=== PATIENT | female | born 2000 | race African-American/Black ===

== ENCOUNTER 2024-02-18 11:51 | Emergency (ER) | payer OTHER, SELFPAY ==
--- NOTE | 2024-02-18 14:21 | RAD REPORT ---
EXAMINATION: ONE VIEW CHEST XR CLINICAL INDICATION: CHEST PAIN TECHNIQUE: Frontal chest projection is submitted. Examination is limited by patient positioning and t echnique. COMPARISON: 12/19/2022 FINDINGS: The lungs are well inflated and clear. The heart is normal in size. No displaced fractures identified . IMPRESSION: No acute intrathoracic abnormalities.
[2024-02-18 16:44] LABS: Absolute Eosinophils 0.1 K/uL (0-0.5); Absolute Lymphocytes (CBC) 1.6 K/uL (0.7-4.9); Absolute Monocytes 0.4 K/uL (0.1-1.3); Absolute Neutrophil 3.1 K/uL (1.8-8.0); Basophils % 0.7 % (0-1.3); Eosinophils % 1.9 % (0-4.4); Hematocrit 34.5 % (36.0-45.0); Hemoglobin 11.6 g/dL (12.0-15.0); Lymphocytes % 30.8 % (15.3-44.8); MCHC 33.6 g/dL (32.0-36.0); MCV 83.6 fL (80-100); MPV 7.3 fL (7.6-11.3); Monocytes % 6.9 % (3.3-12.3); Neutrophils % 59.7 % (41.7-73.7); Nucleated Red Blood Cells % 0.1 % (0-0); Platelets 325 thou/uL (152-406); RBC Red Blood Cell Count 4.12 M/uL (3.86-4.86); Red Cell Distribution Width 14.9 % (12.1-15.2)
[2024-02-18 17:04] LABS: ALT/SGPT 24 U/L (13-56); AST/SGOT 13 U/L (15-37); Albumin 3.6 g/dL (3.4-5.0); Albumin/Globulin Ratio 0.9 (1.1-1.8); Alkaline Phosphatase 74 U/L (45-117); Anion Gap 6.5 mEq/L (5.0-15.0); BUN Blood Urea Nitrogen 6 mg/dL (7-18); Bicarbonate 28 mEq/L (21-32); Bilirubin Direct < 0.2 mg/dL (0-0.2); Bilirubin Indirect, Calculated 0.3 mg/dL (0.2-0.8); Bilirubin Total 0.5 mg/dL (0.2-1.0); Glomerular Filtration Rate 99 ml/min (=/>90); Glucose Level 105 mg/dL (74-106); Potassium 3.5 mEq/L (3.5-5.1); Protein, Total 7.6 g/dL (6.4-8.2); Sodium Level 139 mEq/L (136-145); Troponin High Sensitivity 3.6 pg/mL (<58.9)
--- NOTE | 2024-02-18 17:12 | ER ---
Nurse's Notes [facility] Name: Cori Sheehan Age: 23 yrs Sex: Female : 2000 Arrival Date: 02/18/2024 Time: 11:51 Bed 26 Private MD: Diagnosis: Chest pain, unspecified Presentation: 02/17 12:53 Chief complaint: Patient states: Chest pressure that started yesterday, seen at urgent care today,had EKG that was abnormal, sent to ED for further evaluation. Coronavirus screen: Vaccine status: Patient reports being unvaccinated. Ebola Screen: No symptoms or risks identified at this time. Initial Sepsis Screen: Does the patient meet any 2 criteria? No. Patient's initial sepsis screen is negative. Does the patient have a suspected source of infection? No. Patient's initial sepsis screen is negative. Risk Assessment: Do you want to hurt yourself or someone else? Patient reports no desire to harm self or others. Onset of symptoms was February 18, 2024. 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 - Infectious Disease History:: Denies. - Social history:: Smoking status: Patient denies any tobacco usage or history of. - Family history:: not pertinent. Screenin:40 [facility] ED Fall Risk Assessment (Adult) History of falling in the last 3 months, me1 including since admission No falls in past 3 months (0 pts) Confusion or Disorientation No (0 pts) Intoxicated or Sedated No (0 pts) Impaired Gait No (0 pts) Mobility Assist Device Used No (0 pt) Altered Elimination No (0 pt) Score/Fall Risk Level 0 - 2 = Low Risk Maintained a safe environment, Provided non-skid footwear, Hourly rounding (assess needs \T\ fall precautionary measures) done. Abuse screen: Denies threats or abuse. Nutritional screening: No deficits noted. Tuberculosis screening: No symptoms or risk factors identified. Assessment: 14:40 General: Appears comfortable, well groomed, well developed, well nourished, Behavior is me1 calm, cooperative, appropriate for age, Reports Chest pressure that started yesterday, seen at urgent care today,had EKG that was abnormal, sent to ED for further evaluation. Pain: Complains of pain in chest Pain does not radiate. Pain currently is 3 out of 10 on a pain scale. Quality of pain is described as pressure, Pain began 1 day ago. Is continuous. Neuro: Level of Consciousness is awake, alert, obeys commands, Oriented to person, place, time, situation, Appropriate for age. Cardiovascular: Patient's skin is warm and dry. Cardiovascular: Reports chest pain, shortness of breath. Respiratory: Airway is patent Respiratory effort is even, unlabored, Respiratory pattern is regular, symmetrical. GI: No signs and/or symptoms were reported involving the gastrointestinal system. : No signs and/or symptoms were reported regarding the genitourinary system. EENT: No signs and/or symptoms were reported regarding the EENT system. Derm: Skin is intact, is healthy with good turgor, Skin is pink, warm \T\ dry. Musculoskeletal: No signs and/or symptoms reported regarding the musculoskeletal system. Vital Signs: 12:53 BP 130 / 74; Pulse 65; Resp 18; Temp 97.5; Pulse Ox 100% on R/A; Weight 149.69 kg; ph Height 5 ft. 10 in. ; 15:00 BP 110 / 82; Pulse 76; Resp 19; Pulse Ox 100% ; me1 16:00 BP 113 / 81; Pulse 71; Resp 12; Pulse Ox 96% ; me1 17:00 BP 121 / 95; Pulse 68; Resp 16; Temp 98.4; Pulse Ox 100% ; me1 12:53 Body Mass Index 47.35 (149.69 kg, 177.8 cm) ph ED Course: 11:58 Patient arrived in ED. mg5 12:00 Gerard Topete MD is Attending Physician. rt 12:58 Triage completed. ph 14:16 XRAY Chest (1 view) In Process Unspecified. EDMS 14:39 Sweta Cano, ADEBAYO is Primary Nurse. me1 14:39 EKG done, by ED staff, reviewed by Gerard Topete MD. me1 14:40 No provider procedures requiring assistance completed. Missed attempt(s): 22 gauge in me1 right antecubital area. 14:40 Missed attempt(s): 22 gauge in left antecubital area. me1 14:40 Patient has correct armband on for positive identification. Bed in low position. Call me1 light in reach. Side rails up X2. Provided Education on: POC. Verbalized understanding. . Client placed on continuous cardiac and pulse oximetry monitoring. NIBP monitoring applied. flatwork tier on. Pulse ox on. NIBP on. Warm blanket given. 14:40 Arm band placed on Patient placed in an exam room. me1 16:40 Accessed peripheral vein via ultrasound, utilizing dynamic ultrasound technique using ss 20G Nexia IV catheter ,sterile technique, per hospital protocol. Clean \T\ dry. Dressing intact. Good blood return. Flushes easily. 16:42 Basic Metabolic Panel Sent. ss 16:42 CBC with Diff Sent. 16:42 LFT's Sent. 16:42 Troponin HS Sent. ss 17:11 Garrett Gaines MD is Referral Physician. rt 17:22 IV discontinued, intact, bleeding controlled, No redness/swelling at site. Pressure me1 dressing applied. Administered Medications: No medications were administered Medication: 14:40 VIS not applicable for this client. me1 Outcome: 17:11 Discharge ordered by MD. rt 17:22 Discharged to home ambulatory, with family, me1 17:22 Condition: stable 17:22 Discharge instructions given to patient, family, Instructed on discharge instructions, follow up and referral plans. Demonstrated understanding of instructions, follow-up care, 17:22 Patient left the ED. me1 Signatures: Dispatcher [employer] EDTN Kamilla Gruber RN RN Flavia Palomo RN RN Gerard Topete MD MD rt Sweta Cano RN RN [facility] Janice Braden mg5 Corrections: (The following items were deleted from the chart) 16:23 12:53 Chief complaint: Patient states: Chest pressure that started yesterday, seen at [facility] urgent care today,had EKG that was abnormal, sent to ED for further evaluation. ph
--- NOTE | 2024-02-18 17:12 | EDPHYS ---
Physician Documentation [facility] Name: Cori Sheehan Age: 23 yrs Sex: Female : 2000 Arrival Date: 02/18/2024 Time: 11:51 Bed 26 Private MD: ED Physician Gerard Topete HPI: 02/17 17:20 This 23 yrs old Black Female presents to ER via Ambulatory with complaints of Abnormal rt Lab Results - EKG. 17:22 Patient presents to the ED with chest pain starting yesterday. Describes as a pressure. rt Denies difficulty breathing, other acute complaints. Patient states that she went to an urgent care today, sent to the ED because she had an abnormal EKG. Denies other acute complaints, symptoms are moderate in severity, no other aggravating or alleviating factors.. 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 - Infectious Disease History:: Denies. - Social history:: Smoking status: Patient denies any tobacco usage or history of. - Family history:: not pertinent. ROS: 17:22 Constitutional: Negative for fever, chills, and weight loss, Respiratory: Negative for rt shortness of breath, cough, wheezing, and pleuritic chest pain, Abdomen/GI: Negative for abdominal pain, nausea, vomiting, diarrhea, and constipation, MS/Extremity: Negative for injury and deformity, Skin: Negative for injury, rash, and discoloration, 17:22 Cardiovascular: Positive for chest pain, Negative for edema, Exam: 17:22 Constitutional: This is a well developed, well nourished patient who is awake, alert, rt and in no acute distress. Head/Face: Normocephalic, atraumatic. Chest/axilla: Normal chest wall appearance and motion. Nontender with no deformity. No lesions are appreciated. Cardiovascular: Regular rate and rhythm with a normal S1 and S2. No gallops, murmurs, or rubs. Normal PMI, no JVD. No pulse deficits. Respiratory: Lungs have equal breath sounds bilaterally, clear to auscultation and percussion. No rales, rhonchi or wheezes noted. No increased work of breathing, no retractions or nasal flaring. Abdomen/GI: Soft, non-tender, with normal bowel sounds. No distension or tympany. No guarding or rebound. No evidence of tenderness throughout. Skin: Warm, dry with normal turgor. Normal color with no rashes, no lesions, and no evidence of cellulitis. MS/ Extremity: Pulses equal, no cyanosis. Neurovascular intact. Full, normal range of motion. Neuro: Awake and alert, GCS 15, oriented to person, place, time, and situation. Cranial nerves II-XII grossly intact. Motor strength 5/5 in all extremities. Sensory grossly intact. Cerebellar exam normal. Normal gait. 17:22 ECG was reviewed by the Attending Physician. Vital Signs: 12:53 BP 130 / 74; Pulse 65; Resp 18; Temp 97.5; Pulse Ox 100% on R/A; Weight 149.69 kg; ph Height 5 ft. 10 in. ; 15:00 BP 110 / 82; Pulse 76; Resp 19; Pulse Ox 100% ; me1 16:00 BP 113 / 81; Pulse 71; Resp 12; Pulse Ox 96% ; me1 17:00 BP 121 / 95; Pulse 68; Resp 16; Temp 98.4; Pulse Ox 100% ; me1 12:53 Body Mass Index 47.35 (149.69 kg, 177.8 cm) ph MDM: 14:38 Medical Screening Exam initiated rt 17:22 Differential Diagnosis Nonspecific chest pain, ACS, pneumonia. Data reviewed: vital rt signs, nurses notes, lab test result(s), EKG, radiologic studies. I considered the following discharge prescriptions or medication management in the emergency department. Independent interpretation of the following test(s) in the Emergency Department X-Ray: My interpretation is No consolidation seen on my interpretation of x-ray images. Test considered but Not performed: CT: Low suspicion for PE, PE RC negative, does not require pulmonary angiogram to rule out PE. Scoring Tools HEART Score: History: Slightly Suspicious (0) ECG: Non specific repolarization disturbance/ LBTB/ PM (1) Age: < or = 45 years (0) Risk Factors: No Risk factors known (0) Troponin: > 1 and < 3 x Normal limit (1) Total Score = 2. Counseling: I had a detailed discussion with the patient and/or guardian regarding the historical points, exam findings, and any diagnostic results supporting the discharge/admit diagnosis, lab results, radiology results, the need for outpatient follow up, to return to the emergency department if symptoms worsen or persist or if there are any questions or concerns that arise at home. 02/17 13:15 Order name: Basic Metabolic Panel; Complete Time: 17:08 rt 02/17 13:15 Order name: CBC with Diff; Complete Time: 17:01 rt 02/17 13:15 Order name: LFT's; Complete Time: 17:08 rt 02/17 13:15 Order name: Troponin HS; Complete Time: 17:08 rt 02/17 13:15 Order name: XRAY Chest (1 view); Complete Time: 14:28 rt 02/17 13:15 Order name: EKG; Complete Time: 13:16 rt 02/17 13:15 Order name: Cardiac monitoring; Complete Time: 15:17 rt 02/17 13:15 Order name: EKG - Nurse/Tech; Complete Time: 14:39 rt 02/17 13:15 Order name: IV Saline Lock; Complete Time: 16:42 rt 02/17 13:15 Order name: Labs collected and sent; Complete Time: 16:42 rt 02/17 13:15 Order name: O2 Per Protocol; Complete Time: 15:17 rt 02/17 13:15 Order name: O2 Sat Monitoring; Complete Time: 15:17 rt EC:22 Rate is 75 beats/min. Rhythm is regular, Normal Sinus Rhythm with No ectopy. QRS Carter rt is Normal. VA interval is normal. QRS interval is normal. QT interval is normal. No Q waves. T waves are Inverted in lead III. No ST changes noted. Administered Medications: No medications were administered Disposition Summary: 02/18/24 17:11 Discharge Ordered Notes: Location: Home rt Problem: new rt Symptoms: have improved rt Condition: Stable rt Diagnosis - Chest pain, unspecified rt Followup: rt - With: Garrett Gaines MD - When: 2 - 3 days - Reason: Discharge Instructions: - Discharge Summary Sheet rt - Nonspecific Chest Pain, Adult rt Forms: - Medication Reconciliation Form rt - Antibiotic Education rt - Prescription Opioid Use rt - Patient Portal Instructions rt - Leadership Thank You Letter rt Signatures: Dispatcher [employer] Flavia Dye RN RN [place], Gerard, MD MD rt
[2024-02-18 18:19] VITALS: BP 121/95; TEMP 98.4; O2SAT 100
== END 2024-02-18 17:22 | disposition home or self-care (01) ==
LOC: ER 11:51
DX: R07.9 Chest pain, unspecified (principal)
CPT/HCPCS: 36415; 71045; 80048; 80076; 84484; 85025; 93005; 99285

== ENCOUNTER 2024-09-03 21:52 | Emergency (ER) | payer OTHER, SELFPAY ==
[2024-09-03] MEDS ORDERED: NA CHLORIDE 0.9% 1,000 ML ONE (23:10)
[2024-09-03] MEDS ORDERED: ONDANSETRON 4 MG/2 ML VIAL ONE (23:10)
[2024-09-04 00:19] LABS: Monoscreen NEG (NEG)
[2024-09-04 00:21] LABS: Eosinophils % 0.9 % (0-4.4); Hematocrit 34.6 % (36.0-45.0); Hemoglobin 11.6 g/dL (12.0-15.0); MCH 27.6 pg (27.0-35.0); MCHC 33.6 g/dL (32.0-36.0); MCV 82.2 fL (80-100); MPV 8.5 fL (7.6-11.3); Monocytes % 5.8 % (3.3-12.3); Neutrophils % 54.6 % (41.7-73.7); Platelets 304 thou/uL (152-406); RBC Red Blood Cell Count 4.21 M/uL (3.86-4.86); Red Cell Distribution Width 15.3 % (12.1-15.2)
[2024-09-04 00:22] LABS: Absolute Eosinophils 0.1 K/uL (0-0.5); Absolute Lymphocytes (CBC) 2.2 K/uL (0.7-4.9); Absolute Monocytes 0.3 K/uL (0.1-1.3); Absolute Neutrophil 3.1 K/uL (1.8-8.0); Basophils % 0.7 % (0-1.3)
[2024-09-04] MEDS ORDERED: NA CHLORIDE 0.9% 1,000 ML ONE (00:55)
[2024-09-04 00:56] LABS: Glomerular Filtration Rate 88 ml/min (=/>90)
[2024-09-04 00:57] LABS: Albumin/Globulin Ratio 0.9 (1.1-1.8); Globulin 4.2 g/dL (2.3-3.5)
--- NOTE | 2024-09-04 03:12 | RAD REPORT ---
EXAM: US Abdomen Limited, Gallbladder CLINICAL HISTORY: The patient is 24 years old and is Female; ABD PAIN TECHNIQUE: Real-time ultrasound of the right upper quadrant with image documentation. COMPARISON: No relevant prior studies available. FINDINGS: GALLBLADDER: The gallbladder is normal. No gallstones are seen. There is no gallbladder wall thic kening or pericholecystic fluid. COMMON BILE DUCT: Unremarkable as visualized. No stones. No dilation. IMPRESSION: Normal sonographic appearance of the gallbladder. Electronically signed by: Dena Paulino MD 09/04/2024 03:02 AM CDT RP Due to temporary technical issues with the PACS/Power scribe reporting system, reports are being sign ed by the in-house radiologist without review as a courtesy to ensure prompt reporting the interpreting rad iologist is fully responsible for the content of the report. Transcribed Date/Time: 09/04/2024 3:12 AM
[2024-09-04 03:13] LABS: ALT/SGPT 16 U/L (13-56); Albumin 3.6 g/dL (3.4-5.0); Alkaline Phosphatase 72 U/L (45-117); BUN Blood Urea Nitrogen 8 mg/dL (7-18); Bicarbonate 23 mEq/L (21-32); Bilirubin Total 0.5 mg/dL (0.2-1.0); Glucose Level 106 mg/dL (74-106); Lipase 38 U/L (13-75); Potassium 3.6 mEq/L (3.5-5.1); Protein, Total 7.8 g/dL (6.4-8.2); Sodium Level 139 mEq/L (136-145)
[2024-09-04 03:47] LABS: AST/SGOT < 10 U/L (15-37); Anion Gap 10.6 mEq/L (5.0-15.0)
[2024-09-04 03:49] LABS: Specific Gravity > 1.030 (1.005-1.030)
[2024-09-04 03:54] LABS: Specific Gravity > 1.030 (1.005-1.030); Sqamous Epithelial <5 /HPF (None Seen); Urine Bacteria <20 /HPF (<20); Urine Bilirubin NEGATIVE (Negative); Urine Blood Negative (Negative); Urine Clarity Extremely Turbid (Clear); Urine Color Yellow (Yellow); Urine Glucose NEGATIVE (Negative); Urine Ketones 1+ (Negative); Urine Micro Reflex YN NO BILL MICROSCOPIC; Urine Mucus Slight /HPF (None Seen); Urine Nitrite NEGATIVE (Negative); Urine Protein TRACE (Negative); Urine RBC None Seen /HPF (None Seen); Urine Urobilinogen Normal (Normal); Urine WBC <5 /HPF (<5); Urine pH 5.5 (5.0-7.0)
--- NOTE | 2024-09-04 04:00 | ER ---
Nurse's Notes [facility] Name: Cori Sheehan Age: 24 yrs Sex: Female : 2000 Arrival Date: 09/03/2024 Time: 21:52 Bed 14 Private MD: Diagnosis: Abdominal pain, unspecified Presentation: 09/03 22:14 Chief complaint: Patient states: Abdominal pain, nausea onset 2-3 weeks ago. Pt also cm10 reports swollen lymph nodes in neck. Pt states that eating makes the pain worse. Coronavirus screen: Client denies travel out of the [place] in the last 14 days. Ebola Screen: Patient denies travel to an Ebola-affected area in the 21 days before illness onset. Initial Sepsis Screen: Does the patient meet any 2 criteria? No. Patient's initial sepsis screen is negative. Does the patient have a suspected source of infection? No. Patient's initial sepsis screen is negative. Risk Assessment: Do you want to hurt yourself or someone else? Patient reports no desire to harm self or others. Onset of symptoms is unknown. 22:14 Method Of Arrival: Ambulatory cm10 22:14 Acuity: EVA 3 cm10 Triage Assessment: 22:17 General: Appears in no apparent distress. comfortable, Behavior is calm, cooperative. cm10 Neuro: No deficits noted. Level of Consciousness is awake, alert, obeys commands, Oriented to person, place, time, situation, Appropriate for age. Respiratory: No deficits noted. Airway is patent Respiratory effort is even, unlabored, Respiratory pattern is regular, symmetrical. Historical: - Allergies: 22:16 No Known Allergies; cm10 - Home Meds: 22:16 levothyroxine oral [Active]; cm10 - PMHx: 22:16 Hypothyroidism; cm10 - PSHx: 22:16 None; cm10 - Immunization history:: Adult Immunizations up to date. - Infectious Disease History:: Denies. - Social history:: Smoking status: Patient denies any tobacco usage or history of. Screenin:27 [facility] ED Fall Risk Assessment (Adult) History of falling in the last 3 months, lg3 including since admission No falls in past 3 months (0 pts) Confusion or Disorientation No (0 pts) Intoxicated or Sedated No (0 pts) Impaired Gait No (0 pts) Mobility Assist Device Used No (0 pt) Altered Elimination No (0 pt) Score/Fall Risk Level 0 - 2 = Low Risk Oriented to surroundings, Maintained a safe environment, Educated pt \T\ family on fall prevention, incl call for assistance when getting out of bed, Assessed \T\ reinforced patient's understanding of fall precautions, Provided non-skid footwear. Abuse screen: Denies threats or abuse. Denies injuries from another. Nutritional screening: No deficits noted. Tuberculosis screening: No symptoms or risk factors identified. Assessment: 23:27 General: Appears in no apparent distress. comfortable, Behavior is calm, cooperative. lg3 Pain: Complains of pain in abdomen. Neuro: No deficits noted. Brewer Agitation-Sedation Scale (RASS): 0 - Alert and Calm Level of Consciousness is awake, alert, obeys commands, Oriented to person, place, time, situation. Cardiovascular: No deficits noted. Denies chest pain, shortness of breath, Capillary refill < 3 seconds Clubbing of nail beds is absent JVD is absent Patient's skin is warm and dry. Respiratory: No deficits noted. Airway is patent Respiratory effort is even, unlabored, Respiratory pattern is regular, symmetrical. GI: Abdomen is round non-distended, obese, Bowel sounds present X 4 quads. Abd is soft X 4 quads Abdomen is tender to palpation X 4 quads. Reports lower abdominal pain, upper abdominal pain, constipation, diarrhea, nausea, vomiting. : No signs and/or symptoms were reported regarding the genitourinary system. EENT: No deficits noted. No signs and/or symptoms were reported regarding the EENT system. Derm: No deficits noted. No signs and/or symptoms reported regarding the dermatologic system. Skin is intact, is healthy with good turgor, Skin is dry, Skin is normal, Skin temperature is warm. Musculoskeletal: No deficits noted. No signs and/or symptoms reported regarding the musculoskeletal system. Circulation, motion, and sensation intact. Range of motion: intact in all extremities. 09/04 01:00 Reassessment: Patient appears in no apparent distress at this time. No changes from lg3 previously documented assessment. Patient and/or family updated on plan of care and expected duration. Pain level reassessed. Patient is alert, oriented x 3, equal unlabored respirations, skin warm/dry/pink. Patient states feeling better. 02:48 Reassessment: Patient appears in no apparent distress at this time. No changes from lg3 previously documented assessment. Patient and/or family updated on plan of care and expected duration. Pain level reassessed. Patient is alert, oriented x 3, equal unlabored respirations, skin warm/dry/pink. 03:52 Reassessment: Patient appears in no apparent distress at this time. No changes from lg3 previously documented assessment. Patient and/or family updated on plan of care and expected duration. Pain level reassessed. Patient is alert, oriented x 3, equal unlabored respirations, skin warm/dry/pink. Patient states feeling better. Vital Signs: 09/03 22:14 BP 130 / 89; Pulse 83; Resp 18; Temp 99.3(O); Pulse Ox 100% ; Weight 147.87 kg; Height cm10 5 ft. 10 in. ; Pain 09/10; 09/04 01:01 BP 127 / 79; Pulse 75; Resp 17 S; Pulse Ox 98% on R/A; lg3 03:50 BP 118 / 73; Pulse 62; Resp 16; Pulse Ox 100% ; mm11 09/03 22:14 Body Mass Index 46.78 (147.87 kg, 177.8 cm) cm10 09/03 22:14 Pain Scale: Adult cm10 ED Course: 09/03 21:57 Patient arrived in ED. jj6 21:59 John Martins PA is PHCP. cp 21:59 Gerard Topete MD is Attending Physician. cp 22:16 Triage completed. cm10 22:17 Arm band placed on right wrist. Patient placed in waiting room. cm10 23:01 Catrina Adams, ADEBAYO is Primary Nurse. lg3 23:15 Inserted saline lock: 22 gauge in right hand, using aseptic technique. Blood collected. mm11 Flushed with 10 mL NS. 23:15 CBC with Diff Sent. mm11 23:15 CMP Sent. mm11 23:15 Lipase Sent. mm11 23:15 Mora Screen Profile Sent. mm11 23:27 Patient has correct armband on for positive identification. Placed in gown. Bed in low lg3 position. Call light in reach. Side rails up X 1. Client placed on continuous cardiac and pulse oximetry monitoring. NIBP monitoring applied. Door closed. Noise minimized. Warm blanket given. Pillow given. Family accompanied patient. 23:41 Group A Streptococcus Rapid Sent. mm11 23:41 Mora Screen Profile Sent. mm11 09/04 01:37 US Abdomen Limited: liver/gallbladder In Process Unspecified. EDMS 04:29 No provider procedures requiring assistance completed. IV discontinued, intact, lg3 bleeding controlled, No redness/swelling at site. Pressure dressing applied. Administered Medications: 09/03 23:29 Drug: NS 0.9% IV 1000 ml IV at 1000 ml once; to be given as a bolus over 60 minutes lg3 Route: IV; Rate: 1000 ml; Site: right hand; 09/04 01:00 Follow up: Response: No adverse reaction; IV Status: Completed infusion; IV Intake: lg3 1000ml 09/03 23:29 Drug: Ondansetron IVP 4 mg IVP once; over 2 minutes Route: IVP; Site: right hand; lg3 09/04 01:00 Follow up: Response: No adverse reaction; Marked relief of symptoms lg3 01:00 Drug: NS 0.9% IV 1000 ml IV at 1 bolus Per protocol; to be given as a bolus over 60 lg3 minutes Route: IV; Rate: 1 bolus; Site: right hand; 02:46 Follow up: Response: No adverse reaction; IV Status: Completed infusion; IV Intake: lg3 1000ml Medication: 09/03 23:27 VIS not applicable for this client. lg3 Intake: 09/04 01:00 IV: 1000ml; Total: 1000ml. lg3 02:46 IV: 1000ml; Total: 2000ml. lg3 Outcome: 03:59 Discharge ordered by MD. rt 04:29 Discharged to home ambulatory, with family, lg3 04:29 Condition: stable 04:29 Discharge instructions given to patient, Instructed on discharge instructions, follow up and referral plans. Demonstrated understanding of instructions, follow-up care, 04:30 Patient left the ED. lg3 Signatures: Dispatcher [employer] EDMS John Martins PA PA cp Able, Lacie, RN RN lg3 Angela Nesbitt [id number] Gerard Topete MD MD rt Karen Wooten RN RN cm10 dorothea rios mm11 Corrections: (The following items were deleted from the chart) 09/03 22:17 22:16 Home Meds: None; cm10 cm10 22:17 22:16 PSHx: Unable to Obtain; cm10 cm10
--- NOTE | 2024-09-04 04:00 | EDPHYS ---
Physician Documentation [facility] Name: Cori Sheehan Age: 24 yrs Sex: Female : 2000 Arrival Date: 09/03/2024 Time: 21:52 Bed 14 Private MD: ED Physician Gerard Topete HPI: 09/03 22:25 This 24 yrs old Black Female presents to ER via Ambulatory with complaints of Abdominal cp Pain, Nausea/Vomiting, Swollen Glands. 22:25 The patient presents with abdominal pain nausea and intermittent vomiting times 2 cp weeks, anorexia, diarrhea up until yesterday. Modifying factors: the symptoms are aggravated by food. 22:25 Associated signs and symptoms: Pertinent negatives: active vomiting, cough, chest pain. cp Historical: - Allergies: 22:16 No Known Allergies; cm10 - Home Meds: 22:16 levothyroxine oral [Active]; cm10 - PMHx: 22:16 Hypothyroidism; cm10 - PSHx: 22:16 None; cm10 - Immunization history:: Adult Immunizations up to date. - Infectious Disease History:: Denies. - Social history:: Smoking status: Patient denies any tobacco usage or history of. ROS: 22:30 Constitutional: Positive for poor PO intake, Negative for fever, cp 22:30 Eyes: Negative for injury, pain, redness, and discharge, cp 22:30 ENT: Positive for sore throat, 22:30 Cardiovascular: Negative for chest pain, 22:30 Respiratory: Negative for cough, shortness of breath, wheezing, 22:30 Abdomen/GI: Positive for abdominal pain, nausea, vomiting, and diarrhea, 22:30 Neuro: Negative for altered mental status, 22:30 All other systems are negative, Exam: 22:33 Constitutional: The patient appears in no acute distress, alert, awake, cp non-diaphoretic, non-toxic, well developed, well nourished, obese, 22:33 Head/Face: Normocephalic, atraumatic. cp 22:33 Eyes: Periorbital structures: appear normal, Conjunctiva: normal, no exudate, no injection, Sclera: no appreciated abnormality, Lids and lashes: appear normal, bilaterally, 22:33 ENT: External ear(s): are unremarkable, Nose: is normal, Mouth: Lips: moist, Oral mucosa: moist, Posterior pharynx: Airway: no evidence of obstruction, patent, Tonsils: no enlargement, no exudate, Uvula: midline, erythema, that is mild, exudate, is not appreciated, Voice: is normal, 22:33 Neck: ROM/movement: is normal, is supple, no meningismus, no nuchal rigidity, Lymph nodes: lymphadenopathy is appreciated, anterior cervical nodes, 22:33 Chest/axilla: Inspection: normal, :33 Cardiovascular: Rate: normal, Rhythm: regular, 22:33 Respiratory: the patient does not display signs of respiratory distress, Respirations: normal, no use of accessory muscles, no retractions, labored breathing, is not present, Breath sounds: are clear throughout, no decreased breath sounds, no stridor, no wheezing, 22:33 Abdomen/GI: Inspection: obese Palpation: soft, in all quadrants, mild abdominal tenderness, in the mid and upper abdomen, rebound tenderness, is not appreciated, involuntary guarding, is not appreciated, 22:33 Back: CVA tenderness, is absent, :33 Neuro: Orientation: to person, place \T\ time. Mentation: is normal, Vital Signs: 22:14 BP 130 / 89; Pulse 83; Resp 18; Temp 99.3(O); Pulse Ox 100% ; Weight 147.87 kg; Height cm10 5 ft. 10 in. ; Pain 5/10; 09/04 01:01 BP 127 / 79; Pulse 75; Resp 17 S; Pulse Ox 98% on R/A; lg3 03:50 BP 118 / 73; Pulse 62; Resp 16; Pulse Ox 100% ; mm11 09/03 22:14 Body Mass Index 46.78 (147.87 kg, 177.8 cm) cm10 09/03 22:14 Pain Scale: Adult cm10 MDM: 09/03 22:21 Medical Screening Exam initiated cp 23:00 Differential diagnosis: cholecystitis, Cholelithiasis, non-specific abd pain, cp pancreatitis, Peptic Ulcer Disease, Perf. Duodenal Ulcer, Perf. Gastric Ulcer, Pyelonephritis, urinary tract infection. 09/04 01:36 ED course: US tech reports negative gallbladder/liver study. cp 04:50 Differential diagnosis: Lithiasis, gastritis. Data reviewed: vital signs, nurses notes, rt lab test result(s), radiologic studies. I considered the following discharge prescriptions or medication management in the emergency department Medications were administered in the Emergency Department. See MAR. Test considered but Not performed: CT: Benign abdominal examination, low suspicion for surgical, pathology CT scans not indicated. Counseling: I had a detailed discussion with the patient and/or guardian regarding the historical points, exam findings, and any diagnostic results supporting the discharge/admit diagnosis, lab results, radiology results, the need for outpatient follow up, to return to the emergency department if symptoms worsen or persist or if there are any questions or concerns that arise at home. Response to treatment: the patient's symptoms have mildly improved after treatment. 09/03 22:19 Order name: CBC with Diff; Complete Time: 00:54 cp 09/04 01:09 Interpretation: Normal except: HGB 11.6; HCT 34.6; RDW 15.3. cp 09/03 22:19 Order name: CMP; Complete Time: 03:53 cp 09/04 01:09 Interpretation: Normal except: CL 109; GFR 88; GLOB 4.2; A/G 0.9. cp 09/03 22:19 Order name: Lipase; Complete Time: 03:53 cp 09/03 22:19 Order name: Test, Urine; Complete Time: 03:53 cp 09/03 22:19 Order name: UA W/ Microscopic; Complete Time: 03:54 cp 09/03 22:19 Order name: Group A Streptococcus Rapid; Complete Time: 00:54 cp 09/03 22:19 Order name: [place] Screen Profile; Complete Time: 00:54 cp 09/04 00:19 Order name: Throat Culture EDMS 09/04 01:10 Order name: US Abdomen Limited: liver/gallbladder; Complete Time: 22:19 cp 09/03 22:19 Order name: IV Saline Lock; Complete Time: 23:15 cp 09/03 22:19 Order name: Labs collected and sent; Complete Time: 23:15 cp Administered Medications: 09/03 23:29 Drug: NS 0.9% IV 1000 ml IV at 1000 ml once; to be given as a bolus over 60 minutes lg3 Route: IV; Rate: 1000 ml; Site: right hand; 09/04 01:00 Follow up: Response: No adverse reaction; IV Status: Completed infusion; IV Intake: lg3 1000ml 09/03 23:29 Drug: Ondansetron IVP 4 mg IVP once; over 2 minutes Route: IVP; Site: right hand; lg3 09/04 01:00 Follow up: Response: No adverse reaction; Marked relief of symptoms lg3 01:00 Drug: NS 0.9% IV 1000 ml IV at 1 bolus Per protocol; to be given as a bolus over 60 lg3 minutes Route: IV; Rate: 1 bolus; Site: right hand; 02:46 Follow up: Response: No adverse reaction; IV Status: Completed infusion; IV Intake: lg3 1000ml Disposition: 04:50 Co-signature as Attending Physician, Gerard Topete MD I agree with the assessment and rt plan of care. I reviewed the patient's care provided by Advanced Practice Provider \T\ agree w/ the diagnosis \T\ care plan. I personally saw the pt \T\ performed a substantive portion of the visit, incldng all aspects of the (History/Exam/Medical Decision Making). Disposition Summary: 09/04/24 03:59 Discharge Ordered Notes: Location: Home rt Problem: new rt Symptoms: have improved rt Condition: Stable rt Diagnosis - Abdominal pain, unspecified rt Followup: rt - With: Private Physician - When: 2 - 3 days - Reason: Discharge Instructions: - Discharge Summary Sheet rt - Abdominal Pain, Adult rt Forms: - Medication Reconciliation Form rt - Antibiotic Education rt - Prescription Opioid Use rt - Patient Portal Instructions rt - Leadership Thank You Letter rt Signatures: Dispatcher [employer] EDJohn Banerjee PA PA cp Able, Lacie, RN RN lg3 Gerard Topete MD MD rt Karen Wooten RN RN cm10 Corrections: (The following items were deleted from the chart) 09/03 22:17 22:16 Home Meds: None; cm10 cm10 22:17 22:16 PSHx: Unable to Obtain; cm10 cm10
[2024-09-04 06:54] VITALS: TEMP 99.3
[2024-09-04 06:58] VITALS: BP 118/73; O2SAT 100
== END 2024-09-04 04:30 | disposition home or self-care (01) ==
LOC: ER 21:52
DX: R10.84 Generalized abdominal pain (principal); R11.2 Nausea with vomiting, unspecified
CPT/HCPCS: 96361; 87070; 85025; 81001; 36415; 86308; 81025; 83690; 80053; 76705; 96374; 99284; J2405; J7030 ×2